=== PATIENT | female | born 1970 | race Caucasian/White ===

== ENCOUNTER 2018-02-18 21:41 | Emergency (ER) | payer SELFPAY ==
[~2018-02-18] VITALS: Ht 170.2 cm; Wt 71.7 kg
[2018-02-18 22:28] VITALS: BP 122/73
[2018-02-18] MEDS ORDERED: KETOROLAC TROMETHAMINE INJ 30 MG/ML VIAL IM ONE (23:00)
[2018-02-18] MEDS ORDERED: LIDOCAINE 1%-EPI 1:100,000 50 ML VIAL IJ ONE (23:00)
[2018-02-18] MEDS ORDERED: KETOROLAC TROMETHAMINE INJ 30 MG/ML VIAL ONE (23:09)
[2018-02-18] MEDS ORDERED: LIDOCAINE 1%-EPI 1:100,000 20 ML VIAL ONE (23:09)
== END 2018-02-18 23:20 | disposition left against medical advice (07) ==
LOC: ER 21:47
DX: K08.89 Other specified disorders of teeth and supporting structures (principal); Z90.710 Acquired absence of both cervix and uterus
CPT/HCPCS: 99281; A4606; Z7610; J1885; J3490; Z7502